=== PATIENT | male | born 1955 | race Caucasian/White ===

== ENCOUNTER 2016-09-15 11:04 | Emergency (ER) | payer MEDICARE, MEDICAID | END 2016-09-15 13:39 | disposition left against medical advice (07) | LOC: D.ER 11:04 | DX: S16.1XXA Strain of muscle, fascia and tendon at neck level, initial encounter (principal); V89.2XXA Person injured in unspecified motor-vehicle accident, traffic, initial encounter; Y93.89 Activity, other specified; Y92.410 Unspecified street and highway as the place of occurrence of the external cause; M62.838 Other muscle spasm; R51 Headache; F17.200 Nicotine dependence, unspecified, uncomplicated; I10 Essential (primary) hypertension ==

== ENCOUNTER → 2017-04-22 08:57 | Outpatient (CLI) | payer MEDICARE ==
--- NOTE | 2017-04-23 16:56 | EC ---
PATIENT:INDY HOLLAND DATE OF SERVICE: 04/22/17 SEX: M MEDICAL RECORD: [id number] DATE OF : 55 LOCATION:[facility] AGE OF PATIENT: 61 ADMISSION DATE: 04/22/17 REFERRING PHYSICIAN: INTERPRETING PHYSICIAN: ORSINA VERA MD ECHOCARDIOGRAM REPORT ECHO CHARGES 4 ECHO COMPLETE CLINICAL DIAGNOSIS: ELEVATED BNP AND PEDAL EDEMA HX HTN ECHOCARDIOGRAPHIC MEASUREMENTS (adult normal given) AC root (d.<3.7cm) 3.3 cm LV Septum d (<1.2 cm> 1.1 cm Valve Excursion 1.2 cm LV Septum (systole) 1.3 cm Left Atria (s.<4.0cm> 3.3 cm LVPW d(<1.2cm) 1.0 cm RV (d.<2.3cm) 3.1 cm LVPW (sytole) 1.5 cm LV diastole(<5.6CM) 4.8 cm MV E-F(>70mm/sec) cm LV systole 3.0 cm LVOT Diameter 1.6 cm MV exc.(>10mm) 1.5 cm Est.ejection fraction (50-75%) % Pericardial Effusion N DOPPLER: LVIT cm/sec A 71.0 cm/sec E 96.0 cm/sec LA cm/sec RVSP 48 mmHg LVOT 102 cm/sec AOP1/2T 309 m/s Asc. Ao 152 cm/sec RVOT cm/sec RA 117 cm/sec PA 146 cm/sec AV Gradient Peak 9.20 mmHg AV Mean 4.00 mmHg AV Area 1.4 cm MV Gradient Peak 6.90 mmHg MV Mean 2.08 mmHg MV Area cm COMMENTS: Agency Manager: [employer] Sandwich Counter Attendant: 2 Dr. Butterfield TAPE# PACS DATE OF SERVICE: 04/22/2017 PROCEDURE: Echocardiogram. FINDINGS: 1. Left ventricular chamber size is within normal limits. Left ventricular systolic function is normal. Overall ejection fraction estimated at 60%. 2. Left atrium is within normal limits at 3.3 cm. Right atrium and right ventricular chamber sizes are within normal limits. 3. Valvular structures have normal structure and motion. ECHOCARDIOGRAM REPORT [id number] INDY HOLLAND 4. Doppler interrogation reveals mild aortic insufficiency, mild tricuspid regurgitation, no other valvular insufficiency or stenosis. Pulmonary systolic pressure is estimated 48 mmHg. 5. No evidence of pericardial effusion or left ventricular thrombus. TRANSINT:[id number] Voice Confirmation ID: [id number] DOCUMENT ID: [id number] ROSINA VERA MD at 1656 CC: [id number] DICTATION DATE: 04/22/17 1330 POLICY WRITER TYPIST: 04/22/17 1340 DEP CLI 04/22/17 [id number] [place] [address]
== END | disposition home or self-care (01) ==
LOC: D.ECHO 08:57
DX: R79.89 Other specified abnormal findings of blood chemistry (principal); R60.9 Edema, unspecified

== ENCOUNTER 2017-05-07 09:32 | Emergency (ER) | payer MEDICARE ==
[2017-05-07 10:14] LABS: BASOPHILS 0.3 % (0-2); EOSINOPHILS 1.1 % (0-7); HEMOGLOBIN 14.8 g/dL (13.5-17.5); IMMATURE GRANULOCYTES 0.5 % (0-5); LYMPHOCYTES 23.1 % (15-50); MCH 31.8 pg (26.0-34.0); MCV 85.8 fL (80.0-100.0); MEAN PLATELET VOLUME 8.2 fL (7.4-10.4); MONOCYTES 9.8 % (2-11); NEUTROPHILS 65.2 % (40-80); PLATELET COUNT 322 10x3/uL (130-400); RBC 4.66 10x6/uL (4.20-6.10); RDW 13.2 % (11.5-14.5); WBC 7.9 10x3/uL (4.8-10.8)
[2017-05-07 10:31] LABS: ALBUMIN 3.8 g/dL (3.4-5.0); ALKALINE PHOSPHATASE 138 U/L (46-116); ALT (SGPT) 24 U/L (10-68); CALC OSMOLALITY 235 mosm/kg (275-300); CALCIUM 9.4 mg/dL (8.5-10.1); CARBON DIOXIDE 25.1 mmol/L (21.0-32.0); CREATININE - SERUM 0.9 mg/dL (0.6-1.3); GLUCOSE 127 mg/dL (74-106); POTASSIUM - SERUM 3.2 mmol/L (3.5-5.1); PROTEIN - SERUM 7.1 g/dL (6.4-8.2); UREA NITROGEN 2 mg/dL (7-18); eGFR NON AFRICAN AMERICAN > 90 mL/min (90-120)
[2017-05-07 10:33] LABS: CHLORIDE - SERUM 83 mmol/L (98-107); SODIUM 118 mmol/L (136-145)
== END 2017-05-07 11:25 | disposition home or self-care (01) ==
LOC: D.ER 09:32
PROVIDERS: Emergency Medicine
DX: E87.1 Hypo-osmolality and hyponatremia (principal); I10 Essential (primary) hypertension; E87.6 Hypokalemia; F17.200 Nicotine dependence, unspecified, uncomplicated

== ENCOUNTER 2019-12-18 17:38 | Emergency (ER) | payer MEDICARE ==
[~2019-12-18] VITALS: Ht 170.2 cm; Wt 63.6 kg
[~2019-12-18 17:38] MED LIST: ASCORBIC ACID500 MG; BAYER CHEWABLE81 MG PO; BUMEX2 MG PO; NORVASC10 MG PO; PLAVIX75 MG NG; SLOW RELEASE I160 MG PO
[2019-12-18 17:46] VITALS: Ht 170.2 cm; Wt 63.6 kg
[2019-12-18] MEDS ORDERED: GABAPENTIN300 MG (17:53)
[2019-12-18] MEDS ORDERED: RESTORIL15 MG (17:53)
[2019-12-18 18:59] LABS: BASOPHILS 0.5 % (0-2); EOSINOPHILS 1.2 % (0-7); HEMATOCRIT 35.8 % (42.0-54.0); HEMOGLOBIN 12.5 g/dL (13.5-17.5); IMMATURE GRANULOCYTES 0.2 % (0-5); LYMPHOCYTES 16.2 % (15-50); MCH 30.3 pg (26.0-34.0); MCHC 34.9 g/dL (31.0-37.0); MCV 86.9 fL (80.0-100.0); MEAN PLATELET VOLUME 8.4 fL (7.4-10.4); MONOCYTES 8.4 % (2-11); NEUTROPHILS 73.5 % (40-80); RBC 4.12 10x6/uL (4.20-6.10); RDW 12.5 % (11.5-14.5); WBC 8.4 10x3/uL (4.8-10.8)
[2019-12-18 19:07] LABS: INR 1.01 (0.85-1.17); PROTIME 13.2 SECONDS (11.6-15.0)
[2019-12-18 19:09] LABS: PLATELET COUNT 385 10x3/uL (130-400)
[2019-12-18 19:12] LABS: CALC OSMOLALITY 251 mosm/kg (275-300); CARBON DIOXIDE 25.2 mmol/L (21.0-32.0); CHLORIDE - SERUM 92 mmol/L (98-107); CREATININE - SERUM 1.5 mg/dL (0.6-1.3); GLUCOSE 110 mg/dL (74-106); POTASSIUM - SERUM 5.1 mmol/L (3.5-5.1); SODIUM 124 mmol/L (136-145); UREA NITROGEN 15 mg/dL (7-18); eGFR NON AFRICAN AMERICAN 50 mL/min (90-120)
[2019-12-18 19:31] LABS: ALBUMIN 4.1 g/dL (3.4-5.0); ALKALINE PHOSPHATASE 144 U/L (30-120); ALT (SGPT) 49 U/L (10-68); BILIRUBIN - TOTAL 0.43 mg/dL (0.2-1.3); CKMB 2.3 U/L (0.0-3.6); CREATINE KINASE 72 UL (21-232); PROTEIN - SERUM 7.8 g/dL (6.4-8.2); TROPONIN-I < 0.017 ng/mL (0.000-0.060)
[2019-12-18] MEDS ORDERED: CATAPRES0.2 MG PO (23:07)
[2019-12-18 23:46] VITALS: BP 163/77
== END 2019-12-18 23:42 | disposition home or self-care (01) ==
LOC: D.ER 17:38
PROVIDERS: Family Medicine
DX: I12.9 Hypertensive chronic kidney disease with stage 1 through stage 4 chronic kidney disease, or unspecified chronic kidney disease (principal); N18.9 Chronic kidney disease, unspecified; D64.9 Anemia, unspecified; J44.9 Chronic obstructive pulmonary disease, unspecified; Z72.0 Tobacco use; R51 Headache; E87.1 Hypo-osmolality and hyponatremia